=== PATIENT | female | born 1985 | race Caucasian/White ===

== ENCOUNTER 2023-06-08 00:22 | Emergency (ER) | payer MEDICAID ==
[~2023-06-08] VITALS: Ht 160 cm; Wt 63.5 kg
--- NOTE | 2023-06-08 01:11 | ED Chest Pain ---
General Chief Complaint: General Problems/Pain Stated Complaint: CP Nursing Triage Note: PT TO RM 4 VIA [facility] W C/O INTERMITTENT EPISODES OF STABBING CP X3 DAYS THAT RADIATES TO LEFT ARM, NECK, AND JAW. PT REPORTS EPISODE TONIGHT WAS WORSE, DENIES CP AT THIS TIME. PT REPORTS HX OF GRAVES DISEASE, STATES SHE'S HAD DECREASED APPETITE, FATIGUE, JETER, AND RASH. PT A&OX4. [facility] ADMIN 324MG ASA EN ROUTE TO ED, INITIATED 20G RAC SL PATENT UPON ARRIVAL TO ED. Source: patient Exam Limitations: no limitations History of Present Illness Date Seen by Provider: Jun 08, 2023 Time Seen by Provider: 00:50 Initial Comments Patient is a 37-year-old female with a history of thyroid disease who presents to the emergency department tonight with a chief complaint of substernal sharp, "deep stabbing" chest pain over the last 3 days. She states it is intermittent, occasionally precipitated by walking. It lasts seconds and spontaneously resolves. She states she had it just prior to arrival. She complains of neck pain and left arm pain. Is not short of breath. Does get a little sweaty, mildly nauseated. She is currently on methimazole for her Graves' disease. She is having a hard time with this dosing. She has not currently seen an insurance manager but has an appointment pending in a month. Denies any recent illnesses, fevers, chills, cough or congestion. She is a smoker. She reports that her father had a history of " maker" around age 30. She did receive 324 mg of aspirin in the ambulance prior to arrival. She is currently asymptomatic. Patient does tell me that she had episodes of CP about 2 weeks ago and was seen (she believes) at [facility] in [place], had a stress test and subsequent heart cath which she states was "normal" there were no interventions. 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: Yes NTG SL CENTER CUSTOMER SERVICE ASSOCIATE: No Associated Symptoms: denies symptoms Allergies and Home Medications Allergies Coded Allergies: No Known Drug Allergies (Unverified , 05/09/23) Patient Home Medication List Home Medication List Reviewed: Yes Review of Systems Review of Systems Constitutional: see HPI EENTM: No Symptoms Reported Respiratory: No Symptoms Reported Cardiovascular: Chest Pain Gastrointestinal: No Symptoms Reported Genitourinary: No Symptoms Reported Musculoskeletal: other (left arm pain) Skin: no symptoms reported Psychiatric/Neurological: No Symptoms Reported Endocrine: Flushing (red face) Past Zogkwoc-Atalcg-Xizyry Hx Patient Social History Tobacco Use?: Yes Tobacco type used: Cigarettes Smoking Status: Current Everyday Smoker Use of E-Cig and/or Vaping dev: No Substance use?: No Alcohol Use?: No Immunizations Up To Date First/Initial COVID19 Vaccinat: NONE Second COVID19 Vaccination Feliz: NONE Third COVID19 Vaccination Date: NONE Past Medical History Surgery/Hospitalization HX: GRAVES DISEASE Surgeries: Yes Tubal Ligation Respiratory: No Cardiac: Yes (TACHYCARDIA; "RAYNAUD'S" ) Chronic Edema/Swelling, Hypertension, Irregular Heartbeat Neurological: Yes Neuropathy 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 DENIES IV DRUG USE Physical Exam Vital Signs Vital Signs - First Documented 06/08/23 00:24 Temp 37.0 Pulse 104 Resp 18 B/P (MAP) 135/84 (101) Pulse Ox 98 O2 Delivery Room Air Capillary Refill : Less Than 3 Seconds Height, Weight, BMI Height: '" Weight: lbs. oz. kg; 24.00 BMI Method: General Appearance: No Apparent Distress, WD/WN HEENT: PERRL/EOMI Neck: Normal Inspection, Thyromegaly Respiratory: Lungs Clear, Normal Breath Sounds, No Accessory Muscle Use, No Respiratory Distress Cardiovascular: Regular Rate, Rhythm Gastrointestinal: Normal Bowel Sounds, Soft Extremity: Normal Capillary Refill, Normal Inspection, Normal Range of Motion, Non Tender, No Calf Tenderness Neurologic/Psychiatric: Alert, Oriented x3, No Motor/Sensory Deficits, Normal Mood/Affect Skin: Normal Color, Warm/Dry Progress/Results/Core Measures Results/Orders Lab Results Laboratory Tests Test 06/08/23 01:05 Range/Units White Blood Count 3.4 L 4.3-11.0 10^3/uL Red Blood Count 4.21 3.80-5.11 10^6/uL Hemoglobin 9.7 L 11.5-16.0 g/dL Hematocrit 32 L 35-52 % Mean Corpuscular Volume 76 L 80-99 fL Mean Corpuscular Hemoglobin 23 L 25-34 pg Mean Corpuscular Hemoglobin Concent 30 L 32-36 g/dL Red Cell Distribution Width 16.3 H 10.0-14.5 % Platelet Count 293 130-400 10^3/uL Mean Platelet Volume 10.6 9.0-12.2 fL Immature Granulocyte % (Auto) 0 % Neutrophils (%) (Auto) 40 L 42-75 % Lymphocytes (%) (Auto) 37 12-44 % Monocytes (%) (Auto) 18 H 0-12 % Eosinophils (%) (Auto) 4 0-10 % Basophils (%) (Auto) 0 0-10 % Neutrophils # (Auto) 1.3 L 1.8-7.8 10^3/uL Lymphocytes # (Auto) 1.3 1.0-4.0 10^3/uL Monocytes # (Auto) 0.6 0.0-1.0 10^3/uL Eosinophils # (Auto) 0.2 0.0-0.3 10^3/uL Basophils # (Auto) 0.0 0.0-0.1 10^3/uL Immature Granulocyte # (Auto) 0.0 0.0-0.1 10^3/uL Neutrophils % (Manual) 44 % Lymphocytes % (Manual) 35 % Monocytes % (Manual) 16 % Eosinophils % (Manual) 5 % Hypochromasia SLIGHT Poikilocytosis SLIGHT Macrocytosis SLIGHT Prothrombin Time 13.5 12.2-14.7 SEC INR Comment 1.0 0.8-1.4 Activated Partial Thromboplast Time 30 24-35 SEC Sodium Level 138 135-145 MMOL/L Potassium Level 4.0 3.6-5.0 MMOL/L Chloride Level 105 98-107 MMOL/L Carbon Dioxide Level 26 21-32 MMOL/L Anion Gap 7 5-14 MMOL/L Blood Urea Nitrogen 11 7-18 MG/DL Creatinine 0.50 L 0.60-1.30 MG/DL Estimat Glomerular Filtration Rate 122 BUN/Creatinine Ratio 22 Glucose Level 169 H 70-105 MG/DL Calcium Level 9.3 8.5-10.1 MG/DL Corrected Calcium 9.9 8.5-10.1 MG/DL Magnesium Level 1.6 1.6-2.4 MG/DL Total Bilirubin 0.2 0.1-1.0 MG/DL Aspartate Amino Transf (AST/SGOT) 35 H 5-34 U/L Alanine Aminotransferase (ALT/SGPT) 45 0-55 U/L Alkaline Phosphatase 126 40-136 U/L Myoglobin 11.7 10.0-92.0 NG/ML Troponin I < 0.028 <0.028 NG/ML Total Protein 5.9 L 6.4-8.2 GM/DL Albumin 3.2 3.2-4.5 GM/DL My Orders Orders - EDWIN MCDERMOTT MD Ekg Tracing (06/08/23 00:39) Cbc And Automated Diff (06/08/23 01:10) Magnesium (06/08/23 01:10) Chest 1 View, Ap/Pa Only (06/08/23 01:10) Comprehensive Metabolic Panel (06/08/23 01:10) Myoglobin Serum (06/08/23 01:10) Protime With Inr (06/08/23 01:10) Partial Thromboplastin Time (06/08/23 01:10) O2 (06/08/23 01:10) Monitor-Rhythm Ecg Trace Only (06/08/23 01:10) Ed Iv/Invasive Line Start (06/08/23 01:10) Troponin I [place] (06/08/23 01:10) Manual Differential (06/08/23 01:05) Ketorolac Injection (Ketorolac Injection (06/08/23 02:15) Vital Signs/I&O 06/08/23 06/08/23 00:24 03:10 Temp 37.0 Pulse 104 97 Resp 18 18 B/P (MAP) 135/84 (101) 125/75 Pulse Ox 98 97 O2 Delivery Room Air Room Air Blood Pressure Mean: 101 Progress Progress Note : Time: 02:54 Progress Note Patient seen and evaluated by me - Evcarmita today includes "chest pain" protocol - to include CBC, CMP, coags, Mag level, troponin, EKG and single view CXR. Pert inent physical exam findings include - Thin WDWN female in NAD. HEENT exam remarkable for mild exopthalmos (secondary to Graves disease) thyromegaly. Heart is reg. Lungs clear. Abd benign. No neuro findings. ddx includes GERD, Pleurisy, costochondritis, musculoskeletal CW pain; anxiety Labs, EKG and CXR independently reviewed and interpreted by me - her CBC shows a total WBC of 3.4 with mikldly low H&H at 9.7 and 32. Normal platelets. CMP is pertinent only for elevated glucose at 169. Mag is WNL and troponin is undetectable. Her EKG is NSR with ST segment change and her CXR is also normal. She was treated with 15mg of toradol IV. She feels better. She has had extensive cardiac workup in the last 2-3 months which includes a cardiac catheterization that was "normal" and did not require intervention with angioplasty or stents. She has atypical sounding chest pain that is likely a co mbination of anxiety and possibly GI. I did recommend starting acid reducers. SHe needs to follow up with her PCP for a definitive plan of care. We discussed return precautions, at this point I believe she is low risk for ACS and can safely be discharged to home. All questions are sought and answered. Initial ECG Impression Date: Jun 08, 2023 Initial ECG Impression Time: 00:46 Initial ECG Rate: 98 Initial ECG Rhythm: Normal Sinus Initial ECG Intervals: Normal Initial ECG Impression: Normal Diagnostic Imaging Diagonstic Imaging: Xray Plain Films/CT/US/NM/MRI: chest Comments CXR independently reviewed and interpreted by me - no acute process Departure Impression Primary Impression: Chest pain Qualified Codes: R07.9 - Chest pain, unspecified Disposition: 01 HOME, SELF-CARE Condition: Improved Departure-Patient Inst. Decision time for Depature: 02:52 Referrals: NO,LOCAL PHYSICIAN (PCP/Family) Primary Care Physician Patient Instructions: Chest Pain That Is Not Caused by the Heart (DC) Add. Discharge Instructions: Continue your medications as prescribed by your doctor. You should call your doctor's office tomorrow about the chest pain for further evaluation and management. You can try starting an over the counter acid coke drawer such as generic prilosec. Take one daily for 3 weeks. You should stop smoking as it can greatly improve your health and decrease your risk for health problems. Return to the Emergency Department for any new, concerning or emergent complaints. EDWIN MCDERMOTT MD Jun 08, 2023 01:11
[2023-06-08 01:17] LABS: BASOPHILS % (AUTO) 0 % (0-10); EOSINOPHILS # (AUTO) 0.2 10^3/uL (0.0-0.3); EOSINOPHILS % (AUTO) 4 % (0-10); HEMATOCRIT 32 % (35-52); HEMOGLOBIN 9.7 g/dL (11.5-16.0); LYMPHOCYTES # (AUTO) 1.3 10^3/uL (1.0-4.0); LYMPHOCYTES % (AUTO) 37 % (12-44); MEAN CORPUSCULAR HEMOGLOBIN 23 pg (25-34); MEAN CORPUSCULAR HGB CONC 30 g/dL (32-36); MEAN CORPUSCULAR VOLUME 76 fL (80-99); MEAN PLATELET VOLUME 10.6 fL (9.0-12.2); MONOCYTES # (AUTO) 0.6 10^3/uL (0.0-1.0); MONOCYTES % (AUTO) 18 % (0-12); NEUTROPHILS # (AUTO) 1.3 10^3/uL (1.8-7.8); NEUTROPHILS % (AUTO) 40 % (42-75); PLATELET COUNT 293 10^3/uL (130-400); WHITE BLOOD COUNT 3.4 10^3/uL (4.3-11.0)
[2023-06-08 01:22] LABS: ALBUMIN 3.2 GM/DL (3.2-4.5); CHLORIDE 105 MMOL/L (98-107); SODIUM 138 MMOL/L (135-145)
[2023-06-08 01:23] LABS: PROTHROMBIN TIME PATIENT 13.5 SEC (12.2-14.7)
[2023-06-08 01:24] LABS: CALCIUM 9.3 MG/DL (8.5-10.1)
[2023-06-08 01:25] LABS: GLUCOSE 169 MG/DL (70-105); TOTAL PROTEIN 5.9 GM/DL (6.4-8.2)
[2023-06-08 01:26] LABS: CARBON DIOXIDE 26 MMOL/L (21-32)
[2023-06-08 01:27] LABS: BILIRUBIN,TOTAL 0.2 MG/DL (0.1-1.0)
[2023-06-08 01:28] LABS: ALKALINE PHOSPHATASE 126 U/L (40-136); GFR ESTIMATED 122
[2023-06-08 01:29] LABS: BUN/CREATININE RATIO 22
[2023-06-08 01:31] LABS: ALANINE AMINOTRANSFERASE 45 U/L (0-55); MAGNESIUM 1.6 MG/DL (1.6-2.4)
[2023-06-08] MEDS ORDERED: KETOROLAC INJ 15 MG/ML VIAL IVP ONE (02:15)
[2023-06-08 02:24] LABS: EOSINOPHILS % (MANUAL) 5 %; HYPOCHROMASIA SLIGHT; LYMPHOCYTES % (MANUAL) 35 %; MONOCYTES % (MANUAL) 16 %; NEUTROPHILS % (MANUAL) 44 %; POIKILOCYTOSIS SLIGHT
[2023-06-08 03:10] VITALS: BP 125/75
--- NOTE | 2023-06-08 08:22 | Diagnostic Imaging Report ---
CLINICAL INDICATION: Patient with chest pain. EXAM: Portable chest x-ray upright view. COMPARISON: Chest x-ray dated 05/09/2023. FINDINGS: Lungs/pleura: Interval slight low lung volumes noted with mild bibasilar atelectasis. There is no interval lung infiltrate. There is no pneumothorax. There is no pleural effusion. Mediastinum: Unremarkable. Pulmonary vasculature: Unremarkable. Heart: Unremarkable. Bones/extrathoracic soft tissue: Unremarkable. IMPRESSION: There is no radiographic evidence of acute cardiopulmonary process. There is mild bibasilar atelectasis. Dictated by: Dictated on workstation # [id number]
== END 2023-06-08 03:10 | disposition home or self-care (01) ==
LOC: EDUNIT# 00:22 → ER 00:23
DX: R07.2 Precordial pain (principal); D72.829 Elevated white blood cell count, unspecified; R73.9 Hyperglycemia, unspecified; F17.210 Nicotine dependence, cigarettes, uncomplicated; E05.00 Thyrotoxicosis with diffuse goiter without thyrotoxic crisis or storm; Z79.899 Other long term (current) drug therapy
CPT/HCPCS: 36415; 71045; 80053; 83735; 83874; 84484; 85007; 85027; 85610; 85730; 93005; 93041; 96374